=== PATIENT | male | born 1980 | race Caucasian/White ===

== ENCOUNTER 2019-01-12 12:57 | Emergency (ER) | payer OTHER ==
[~2019-01-12] VITALS: Ht 170.2 cm; Wt 81.7 kg
[2019-01-12] MEDS ORDERED: IBUPROFEN200 MG PO (13:18)
[2019-01-12] MEDS ORDERED: MELATONIN5 M2 PO (13:19)
== END 2019-01-12 13:35 | disposition home or self-care (01) ==
LOC: ED 12:57
DX: S90.31XA Contusion of right foot, initial encounter (principal); S00.01XA Abrasion of scalp, initial encounter; W17.89XA Other fall from one level to another, initial encounter
CPT/HCPCS: 73630; 99283